=== PATIENT | female | born 1960 | race Caucasian/White ===

== ENCOUNTER 2017-10-09 12:27 | Emergency (ER) | payer SELFPAY ==
[2017-10-09 12:37] VITALS: O2SAT 98
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
--- NOTE | 2017-10-09 14:40 | CT ---
PROCEDURE: CT HEAD WITHOUT CONTRAST. HISTORY: Headache, dizziness, s/p head injury COMPARISON: None available. TECHNIQUE: Axial computed tomography images were obtained through the head/brain without intravenous contrast. Radiation dose: Total exam DLP = 756.22 mGy-cm. This CT exam was performed using one or more of the following dose reduction techniques: Automated exposure control, adjustment of the mA and/or kV according to patient size, and/or use of iterative reconstruction technique. FINDINGS: HEMORRHAGE: No intracranial hemorrhage. BRAIN: Tse-white matter differentiation is preserved. There is no mass, mass effect or abnormal extra-axial fluid collection. There is no territorial infarction. There are symmetric senile bilateral basal ganglia calcifications. VENTRICLES: The ventricles are normal in size, shape and configuration. CALVARIUM: The skullbase and calvarium are normal. PARANASAL SINUSES: Predominantly clear. MASTOID AIR CELLS: Predominantly clear. OTHER FINDINGS: None. IMPRESSION: No acute intracranial abnormality.
[2017-10-09 16:03] VITALS: BP 120/82; PULSE 75; RESP 18; TEMP 97.9
--- NOTE | 2017-10-10 19:54 | RAD ---
PROCEDURE: Right Foot Radiographs. HISTORY: pain COMPARISON: None. FINDINGS: BONES: Bone alignment and mineralization are normal. There is no acute displaced fracture or bone destruction. There is a large plantar calcaneal spur. JOINTS: Normal. SOFT TISSUES: There is a calcific density in the soft tissues of the midfoot. OTHER FINDINGS: None. IMPRESSION: No acute fracture or dislocation. Large plantar calcaneal spur. Calcific density overlying the soft tissues of the midfoot could represent soft tissue calcification however foreign body cannot be excluded. Clinical follow-up is advised.
--- NOTE | 2017-10-10 19:54 | RAD ---
PROCEDURE: Radiographs of the right tibia and fibula. HISTORY: Pain COMPARISON: None available. TECHNIQUE: Frontal and lateral views obtained. FINDINGS: BONES: Bone alignment and mineralization are normal. There is no acute fracture or bone destruction. JOINT SPACES: Unremarkable. OTHER FINDINGS: None. IMPRESSION: No acute fracture or dislocation.
== END 2017-10-09 16:03 | disposition home or self-care (01) ==
LOC: H.ER 12:27
DX: S09.90XA Unspecified injury of head, initial encounter (principal); S90.31XA Contusion of right foot, initial encounter; E11.9 Type 2 diabetes mellitus without complications